=== PATIENT | male | born 1970 | race Caucasian/White ===

== ENCOUNTER → 2020-11-12 06:55 | Outpatient (CLI) | payer SELFPAY ==
--- NOTE | 2020-11-12 07:05 | CT_ITS ---
STUDY: CT MAXILLOFACIAL SINUSES REASON FOR EXAM: Male, 50 years old. SINUITIS RADIATION DOSAGE (If Supplied By Facility): CTDIvol = ( 33.06 ) mGy, DLP = ( 862.77 ) mGycm TECHNIQUE: The patient was scanned in a multi detector CT scanner. High resolution axial imaging was performed without the administration of intravenous contrast material. Sagittal and coronal images were reconstructed. Individualized dose optimization techniques were used for this CT. COMPARISON: None. FINDINGS: FRONTAL SINUSES: Normal aeration, with mucosal inflammatory disease. ETHMOIDAL SINUSES: Normal aeration, with mucosal inflammatory disease. MAXILLARY SINUSES: Normal aeration, with mucosal inflammatory disease. SPHENOIDAL SINUSES: Normal aeration, with mucosal inflammatory disease. There is occlusion of the bilateral maxillary infundibuli with normal uncinate processes, ethmoid bullae, and hiatus semilunaris. Normal bilateral middle turbinates. Normal bilateral inferior turbinates. Normal midline nasal septum. There is patency of the bilateral nasal airways. The visualized osseous structures are normal. The visualized bilateral orbital contents are normal. Chronic mastoiditis, worse on the left than the right. There is also soft tissue noted within the middle ear surrounding the ossicles. CT/Sinus/Facial Bone IMPRESSION: QUINTERO paranasal sinusitis with occlusion of the ostiomeatal complexes No fracture or suspicious osseous lesion Chronic mastoiditis, worse on the left than the right soft tissue density noted surrounding the middle ear ossicles Electronically Signed: Álvaro Claudio MD at 10:18 EDT , Service support ,
== END ==
PROVIDERS: PCP Family Medicine; Referring Provider Otolaryngology; Visit Provider Otolaryngology
DX: J32.9 Chronic sinusitis, unspecified (principal)
CPT/HCPCS: 70486

== ENCOUNTER → 2021-09-27 | Outpatient (CLI) | payer SELFPAY ==
--- NOTE | 2021-09-27 08:38 | EKG12_ITS ---
Test Reason : PRE-OP Blood Pressure : / mmHG Vent. Rate : 055 BPM Atrial Rate : 055 BPM P-R Int : 204 ms QRS Dur : 106 ms QT Int : 388 ms P-R-T Axes : 014 003 009 degrees QTc Int : 371 ms Sinus bradycardia Otherwise normal ECG Confirmed by KELI MARSH, JAROD ([id number]), editor in chief TRICIA DESAI ([id number]) on 09/28/2021 10:04:49 AM Referred By: Tahir García Confirmed By:JAROD DICKEY MD
[2021-09-27 09:32] LABS: Hematocrit 39.9 % (40-54); Hemoglobin 13.9 g/dL (13.0-16.5); Mean Corp Hgb Conc 34.8 g/dL (32-36); Mean Corpuscular Hgb 29.6 pg (27.0-32.0); Mean Corpuscular Volume 84.9 fL (80-94); Mean Platelet Vol. 9.4 fl (6.2-12.0); Platelet Count 200 K/mm3 (150-450); RBC Distribution Width CV 12.1 % (11.6-14.6); RBC Distribution Width SD 37.4 fl (35.1-43.9); White Blood Count 5.4 K/mm3 (4.4-11.0)
[2021-09-27 10:40] LABS: Anion Gap 4 (5-15); BUN 21 mg/dL (7-18); BUN/Creat Ratio 21.9 RATIO (10-20); Calcium,Total 8.9 mg/dL (8.5-10.1); Chloride 108 mmol/L (98-107); Creatinine, Serum 0.96 mg/dL (0.70-1.30); EST Glomerular Filtration Rate 87 mL/min (>60); Est Glom Filt Rate - Afr Amer 105 mL/min (>60); Glucose 83 mg/dL (74-106); Potassium 3.9 mmol/L (3.5-5.1); Sodium Level 138 mmol/L (136-145)
== END | disposition home or self-care (01) ==
PROVIDERS: PCP Family Medicine; Referring Provider Otolaryngology; Visit Provider Otolaryngology
DX: Z01.812 Encounter for preprocedural laboratory examination (principal); Z01.810 Encounter for preprocedural cardiovascular examination
CPT/HCPCS: 36415; 80048; 85027; 93005

== ENCOUNTER 2022-09-09 13:18 | Emergency (ER) | payer OTHER, SELFPAY ==
[2022-09-09 13:19] VITALS: BP 98/70; PULSE 74; RESP 18; TEMP 36.1; O2SAT 94; BMI 28.4
--- NOTE | 2022-09-09 13:19 | EKG12_ITS ---
Test Reason : TRAUMA Blood Pressure : / mmHG Vent. Rate : 082 BPM Atrial Rate : 082 BPM P-R Int : 202 ms QRS Dur : 098 ms QT Int : 374 ms P-R-T Axes : 045 022 016 degrees QTc Int : 436 ms Normal sinus rhythm Normal ECG Confirmed by MAGO MARSH, PAWEL ([id number]), state editor TRICIA DESAI ([id number]) on 09/12/2022 10:27:56 AM Referred By: Confirmed By:PAWEL MERCEDES MD
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
--- NOTE | 2022-09-09 13:20 | CT_ITS ---
EXAM: CT SPINE - CERVICAL WITHOUT IV REASON FOR EXAM: Male, 52 years old. NECK PAIN Trauma HISTORY: NECK PAIN Trauma Individualized dose optimization techniques were used for this CT. TECHNIQUE: Multiplanar images were obtained of the cervical spine. IV contrast was not utilized. COMPARISON: None. FINDINGS: The vertebral bodies do maintain their height. The odontoid process is intact. No pre-vertebral soft tissue swelling is seen. The intravertebral disc height is lost. There are scattered lymph nodes in the neck. There are degenerative changes of the osseous structures. CT/Spine Cervical without Contras IMPRESSION: Degenerative changes of the cervical spine. There are no acute findings. Electronically Signed: Kike Moore MD at 14:35 EDT ,
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
[2022-09-09] MEDS: HYDROmorphone 1 MG/ML Syringe 0.5 MG IV (13:28)
[2022-09-09 13:32] LABS: Absolute Lymphocyte Count 1.79 X10^3/uL (0.83-4.51); Absolute Neutrophil Count 7.2 X10^3/uL (2.0-7.7); Basophil# 0.03 X10^3/uL; Basophil% 0.3 % (0-1); Eosinophil# 0.03 X10^3/uL; Eosinophils% 0.3 % (0-5); Hematocrit 40.3 % (40-54); Lymphocyte # 1.79 X10^3/ul (0.83-4.51); Lymphocyte % 17.9 % (19-41); Mean Corp Hgb Conc 34.7 g/dL (32-36); Mean Corpuscular Hgb 29.8 pg (27.0-32.0); Mean Corpuscular Volume 85.7 fL (80-94); Mean Platelet Vol. 9.4 fl (6.2-12.0); Monocyte# 0.72 X10^3/uL; Monocyte% 7.2 % (0-10); NRBC Flagged by Analyzer 0 % (0-5); Neutrophil % 71.9 % (47-70); Platelet Count 238 K/mm3 (150-450); RBC Distribution Width CV 12.6 % (11.6-14.6); RBC Distribution Width SD 39.2 fl (35.1-43.9)
[2022-09-09 13:46] LABS: Anion Gap 7 (5-15); BUN 18 mg/dL (7-18); BUN/Creat Ratio 14.5 RATIO (10-20); Calcium,Total 8.5 mg/dL (8.5-10.1); Chloride 112 mmol/L (98-107); Creatinine, Serum 1.24 mg/dL (0.70-1.30); EST Glomerular Filtration Rate 65 mL/min (>60); Est Glom Filt Rate - Afr Amer 78 mL/min (>60); Estimated Creatinine Clearance 65.89 ml/min; Glucose 125 mg/dL (74-106); Potassium 3.6 mmol/L (3.5-5.1); Sodium Level 144 mmol/L (136-145)
[2022-09-09 13:50] LABS: Base Excess -1 mmol/L (-2 to +2); Bicarbonate 24.5 mmol/L (22-26); Blood Gas Specimen Type ART; LPM 3.5 /min; O2 Delivery Device Cannula; PO2 63 mmHG (75-100); SITE L Radial; SO2 90 % (95-99); Total Carbon Dioxide 26 mmol/L; pCO2 44.8 mmHg (35-45); pH 7.35 (7.35-7.45)
[2022-09-09] MEDS: HYDROmorphone 1 MG/ML Syringe IV ×3 (13:55→16:18)
[2022-09-09] MEDS: Lidocaine 1% (20 ml mdv) 20 ML Vial 10 ML INFILT (14:20)
[2022-09-09 14:25] VITALS: BP 113/77; PULSE 90; RESP 18; O2SAT 97
[2022-09-09] MEDS: HYDROmorphone 0.5 MG/0.5 ML SYRINGE IV (14:25)
[2022-09-09] MEDS: Cefazolin 1 GM/50 ML BAG IV (14:31)
[2022-09-09 14:33] VITALS: BP 106/71; PULSE 81; RESP 18; O2SAT 93
--- NOTE | 2022-09-09 14:38 | RAD_ITS ---
STUDY: X-RAY CHEST REASON FOR EXAM: Male, 52 years old. CHEST PAIN Post chest tube placement right side TECHNIQUE: XR Chest 1 View COMPARISON: None FINDINGS: Multiple right rib fractures. Right chest tube in place. Bilateral increased pulmonary lung markings may suggest bilateral pulmonary contusions. No pneumothorax. Subcutaneous emphysema. There is borderline cardiomegaly. Normal mediastinum and miles. Normal visualized pulmonary arteries. Normal visualized aortic arch and descending thoracic aorta. Normal visualized thoracic spine. Normal visualized ribs, clavicles, and shoulders. There is no demonstrated abnormality of the visualized soft tissue structures of the upper abdomen. RAD/Chest 1 View (Portable) IMPRESSION: Multiple right rib fractures. Right chest tube in place. Bilateral increased pulmonary lung markings may suggest bilateral pulmonary contusions. No pneumothorax. Electronically Signed: Kike Moore MD at 15:13 EDT ,
--- NOTE | 2022-09-09 14:52 | NURSING ---
PATIENT IS BEING TRANSFERRED TO [facility]- PATIENT WILL BE TRANSPORTED TO BY [facility]-- ABELARDO-- 45MIN-1 HOUR-- [id number]
[2022-09-09 15:11] LABS: Bacteria 0 SEEN /hpf (None Seen); Mucous, Urine 0 SEEN /hpf (<or=2+); Squamous Epithelial Cells - UA 0 SEEN /hpf (0-5); White Blood Cells 0 SEEN /hpf (0-5)
[2022-09-09 15:23] LABS: Color, Urine Straw (Yellow); Glucose, Dipstick Normal (Normal); Ketone-Dipstick Negative (Negative); Leukocyte Esterase-Dipstick 25 /ul (Negative); Nitrite-Dipstick Negative (Negative); Occult Blood-Urine 150 /ul (Negative); Protein-Dipstick 30 mg/dl (Negative); Urine Bilirubin Dipstick Negative (Negative); Urine Clarity Clear (Clear); Urine Urobilinogen Normal (Normal)
[2022-09-09 15:30] VITALS: BP 103/76; PULSE 73; RESP 20; TEMP 36.4; O2SAT 93
[2022-09-09 17:14] LABS: Red Blood Cells-Urine 0-5 SEEN /hpf (0-5)
== END 2022-09-09 16:20 | disposition short-term general hospital (02) ==
PROVIDERS: Emergency Provider Emergency Medicine; PCP Family Medicine; Visit Provider Emergency Medicine
DX: S22.41XA Multiple fractures of ribs, right side, initial encounter for closed fracture (principal); S32.10XA Unspecified fracture of sacrum, initial encounter for closed fracture; S32.485A Nondisplaced dome fracture of left acetabulum, initial encounter for closed fracture; J96.01 Acute respiratory failure with hypoxia; I10 Essential (primary) hypertension; R10.9 Unspecified abdominal pain; S27.0XXA Traumatic pneumothorax, initial encounter; W23.0XXA Caught, crushed, jammed, or pinched between moving objects, initial encounter
CPT/HCPCS: 32551; 36600; 51702; 71045; 71260; 72125; 74177; 80048; 81001; 82803; 85025; 93005; 99285; J7030; Q9967; A4216